=== PATIENT | male | born 1960 | race Caucasian/White ===

== ENCOUNTER → 2020-09-13 | Outpatient (CLI) | payer BC, OTHER | LOC: M LABSMTC 13:14 | PROVIDERS: ATTEND Family Medicine | DX: Z20.828 Contact with and (suspected) exposure to other viral communicable diseases (principal) | CPT/HCPCS: C9803; U0003 ==

== ENCOUNTER → 2021-12-15 | Outpatient (REF) | payer OTHER, BC | LOC: M LAB REF 17:17 | PROVIDERS: ATTEND Nurse Practitioner Family | DX: D36.10 Benign neoplasm of peripheral nerves and autonomic nervous system, unspecified (principal) ==

== ENCOUNTER 2022-11-07 20:31 | Emergency (ER) | payer BC, OTHER ==
[~2022-11-07] VITALS: Ht 175.3 cm; Wt 80.7 kg
[2022-11-07] MEDS ORDERED: PROT1TAB2 PO (20:42)
[2022-11-07] MEDS ORDERED: MUCI1TAB16 PO (20:43)
[2022-11-07] MEDS ORDERED: BENZONATATE 100MG CAPSULE PO ONE (23:10)
[2022-11-07] MEDS ORDERED: CHLO1TAB35 PO (23:12)
[2022-11-07 23:19] VITALS: BP 167/67
== END 2022-11-07 23:21 | disposition home or self-care (01) ==
LOC: M ED 20:31
DX: J04.0 Acute laryngitis (principal); R09.89 Other specified symptoms and signs involving the circulatory and respiratory systems

== ENCOUNTER → 2022-12-07 | Outpatient (REF) | payer BC, OTHER ==
[~2022-12-07] MED LIST: CHLO1TAB35 PO; MUCI1TAB16 PO; PROT1TAB2 PO
== END ==
LOC: M SFHCDERM 12:00
PROVIDERS: ATTEND Nurse Practitioner Family
DX: D04.39 Carcinoma in situ of skin of other parts of face (principal)

== ENCOUNTER → 2025-09-15 | Outpatient (REF) | payer BC ==
[2025-09-15 17:19] LABS: BASO # 0.0 10^3/uL (0.0-0.2); BASO % 0.7 % (0.0-1.0); EOS # 0.2 10^3/uL (0.0-0.5); EOS % 2.9 % (0.0-3.0); LYMPH # 1.5 10^3/uL (1.5-5.0); LYMPH % 27.4 % (24.0-44.0); MONO # 0.5 10^3/uL (0.0-0.8); MONO % 9.9 % (2.0-8.0); NEUTROPHILS # 3.2 10^3/uL (1.5-8.5); NEUTROPHILS % 58.9 % (36.0-66.0); PLATELET COUNT, AUTOMATED 245 10^3/uL (150-450)
[2025-09-15 17:53] LABS: PSA SCREENING 2.75 NG/ML (< 4.00)
[2025-09-15 17:57] LABS: ALT/SGPT 32.0 U/L (7.0-40); AST/SGOT 25.0 U/L (<34); CALCIUM LEVEL 9.5 MG/DL (8.3-10.6); CARBON DIOXIDE LEVEL 28.0 MMOL/L (20-31); CHLORIDE LEVEL 105.0 MMOL/L (98-107); CHOLESTEROL LEVEL 281.0 MG/DL (<200); CHOLESTEROL RISK RATIO 6.45 (<5); CREATININE FOR GFR 0.98 MG/DL (0.70-1.30); FREE T4 0.99 NG/DL (0.89-1.76); GLOMERULAR FILTRATION RATE 85.0 (>49); LDL CHOLESTEROL 206.9 MG/DL (<100); NON-HDL-C 237.5 MG/DL; POTASSIUM SERUM 4.9 MMOL/L (3.5-5.1); SODIUM LEVEL 143.0 MMOL/L (136-145); TRIGLYCERIDES LEVEL 153.0 MG/DL (<150)
[2025-09-15 18:15] LABS: ESTIMATED AVERAGE GLUCOSE 123.0 MG/DL (60-110)
== END ==
LOC: M SFHCADAM 15:15
PROVIDERS: ATTEND Physician Assistant
DX: Z00.00 Encounter for general adult medical examination without abnormal findings (principal); Z12.11 Encounter for screening for malignant neoplasm of colon; Z12.5 Encounter for screening for malignant neoplasm of prostate; I10 Essential (primary) hypertension; Z13.220 Encounter for screening for lipoid disorders; Z13.1 Encounter for screening for diabetes mellitus; R00.1 Bradycardia, unspecified
CPT/HCPCS: 80053; 80061; 83036; 84439; 84443; 85025; G0103